=== PATIENT | male | born 2000 | race Caucasian/White ===

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

== ENCOUNTER 2021-07-28 21:29 | Emergency (ER) | payer MEDICAID ==
[~2021-07-28] VITALS: Ht 182.9 cm; Wt 100.0 kg
[2021-07-28 21:31] VITALS: BP 149/87
== END 2021-07-28 22:40 | disposition home or self-care (01) ==
LOC: EMS 21:34
DX: J34.89 Other specified disorders of nose and nasal sinuses (principal)
CPT/HCPCS: 99282; Z7502